=== PATIENT | female | born 1965 | race Hispanic/Latino ===

== ENCOUNTER 2021-07-14 19:57 | Emergency (ER) | payer SELFPAY ==
[2021-07-14 20:45] LABS: #Eosinphils 0.3 10x3/uL (0.0-0.5); #Monocytes 0.4 10x3/uL (0.0-1.1); #Neutrophils 3.4 10x3/uL (1.5-8.4); %Basophils 0.3 % (0.0-2.0); %Eosinophils 4.1 % (0.0-6.0); %Lymphocytes 31.8 % (18.0-47.0); %Monocytes 6.8 % (0.0-10.0); %Neutrophils 56.7 % (40.0-75.0); Hemoglobin 10.3 g/dL (12.0-15.5); Mean Corpuscular HGB CONC 32.1 g/dL (32.0-36.0); Mean Corpuscular Hemoglobin 26.2 pg (27.0-33.0); Mean Corpuscular Volume 81.7 fl (81.6-98.3); Mean Platelet Volume 10.2 fl (7.4-10.4); Platelet Count 103 10x3/uL (150-450); RBC Distribution Width 19.4 % (11.5-14.5); Red Blood Cell (RBC) Count 3.93 10x6/uL (3.90-5.03)
[2021-07-14 20:47] LABS: ALT (SGPT) 21 U/L (8-55); AST (SGOT) 40 U/L (5-34); Alkaline Phosphatase 177 U/L (40-110); Anion Gap 14 mmol/L (10-20); BUN (Urea Nitrogen) 23 mg/dL (9.8-20.1); Bilirubin, Total 0.9 mg/dL (0.2-1.2); Calc. Creatinine Clearance 0 mL/min (70-130); Calcium 9.1 mg/dL (7.8-10.44); Carbon Dioxide 23 mmol/L (22-29); Chloride 105 mmol/L (98-107); Globulin 4.7 g/dL (2.4-3.5); Glucose 243 mg/dL (70-105); Potassium 4.1 mmol/L (3.5-5.1); Protein, Total 7.7 g/dL (6.0-8.3); Sodium 138 mmol/L (136-145)
== END 2021-07-14 22:30 | disposition home or self-care (01) ==
LOC: CSHERS 19:57
DX: M79.10 Myalgia, unspecified site (principal); R53.83 Other fatigue; Z79.899 Other long term (current) drug therapy; Z79.84 Long term (current) use of oral hypoglycemic drugs
CPT/HCPCS: 36416; 71045; 80053; 85025; 93005

== ENCOUNTER 2024-03-11 17:54 | Emergency (ER) | payer BC, SELFPAY ==
[2024-03-11] MEDS ORDERED: Ketorolac Tromethamine 30 MG (1 mL) VIAL ONE (18:41)
== END 2024-03-11 19:32 | disposition home or self-care (01) ==
LOC: CSHERS 17:54
DX: M25.562 Pain in left knee (principal); E11.9 Type 2 diabetes mellitus without complications; Z79.899 Other long term (current) drug therapy; X50.1XXA Overexertion from prolonged static or awkward postures, initial encounter
CPT/HCPCS: 96372; 99283; J1885

== ENCOUNTER 2024-10-06 15:44 | Inpatient (IN) | payer OTHER ==
[2024-10-06] MEDS ORDERED: diphenhydrAMINE 50 MG/ML VIAL ONE (17:16)
[2024-10-06] MEDS ORDERED: Metoclopramide HCl 10 MG (2 mL) VIAL ONE (17:17)
[2024-10-06 17:39] LABS: #Basophils 0.05 10x3/uL (0.0-0.2); #Eosinophils 0.27 10x3/uL (0.0-0.5); #Monocytes 0.72 10x3/uL (0.0-1.1); #Neutrophils 6.24 10x3/uL (1.5-8.4); %Basophils 0.6 % (0.0-2.0); %Eosinophils 3.2 % (0.0-6.0); %Lymphocytes 12.0 % (18.0-47.0); %Monocytes 8.6 % (0.0-10.0); %Neutrophils 74.9 % (40.0-75.0); Hematocrit 35.9 % (34.9-44.5); Hemoglobin 12.4 g/dL (12.0-15.5); Mean Corpuscular Hemoglobin 35.6 pg (27.0-33.0); Mean Corpuscular Volume 103.2 fL (81.6-98.3); Red Blood Cell (RBC) Count 3.48 10x6/uL (3.90-5.03); White Blood Cell (WBC) Count 8.34 10x3/uL (3.5-10.5)
[2024-10-06 17:41] LABS: Platelet Count 50 10x3/uL (150-450)
[2024-10-06 17:51] LABS: ALT (SGPT) 48 U/L (Less than 34); AST (SGOT) 82 U/L (11-34); Albumin 2.0 g/dL (3.1-4.5); Alkaline Phosphatase 133 U/L (40-110); Anion Gap 13 mmol/L (10-20); BUN (Urea Nitrogen) 34 mg/dL (9.8-20.1); Bilirubin, Total 6.8 mg/dL (0.3-1.2); Calc. Creatinine Clearance 0 mL/min (70-130); Calcium 8.4 mg/dL (7.8-10.44); Carbon Dioxide 18 mmol/L (22-29); Chloride 106 mmol/L (98-107); Globulin 5.1 g/dL (2.4-3.5); Glucose 120 mg/dL (70-105); Potassium 4.8 mmol/L (3.5-5.1); Sodium 132 mmol/L (136-145)
[2024-10-06] MEDS ORDERED: Ondansetron PF 4 MG/2 ML Vial ONE (19:50)
[2024-10-06] MEDS ORDERED: Ondansetron PF 4 MG/2 ML Vial IVP PRN (20:12)
[2024-10-06] MEDS ORDERED: Dextrose 50% Abboject 50 ML SYRINGE SLOW IVP PRN (20:23)
[2024-10-06] MEDS ORDERED: Glucagon 1 MG/ML KIT IM PRN (20:23)
[2024-10-06 21:13] LABS: INR-International Normal Ratio 1.4; PTT 33.0 sec (22.0-33.0); Prothrombin Time 14.7 sec (9.5-12.1)
[2024-10-06 21:14] LABS: Magnesium 1.7 mg/dL (1.6-2.6)
[2024-10-06 21:35] VITALS: BMI 44.2
[2024-10-06] MEDS: Magnesium Sulfate/D5W 1 GM in Premix 1 BAG IVPB SCH (22:24)
[2024-10-06] MEDS: Albumin 25% 25 GM (100 mL) BOT IVPB SCH (22:25)
[2024-10-06] MEDS: Cyclobenzaprine 10 MG TAB PO PRN (22:26)
[2024-10-06] MEDS: Lactulose 20 GM (30 mL) UDCUP PO SCH (22:26)
[2024-10-06 22:57] LABS: Glucose, Urine (Dipstick) Normal (Negative); Leukocyte Negative (Negative); Protein, Urine (Dipstick) Negative (Neg-Trace); Specific Gravity, Urine 1.010 (1.005-1.030)
[2024-10-06 23:22] LABS: Bacteria/HPF Rare-Few HPF (None Seen); RBC/HPF 0-3 HPF (0-3); WBC/HPF 0-3 HPF (0-3)
[2024-10-07 00:38] LABS: Influenza A by NAA Not Detected (NotDetected); Influenza B by NAA Not Detected (NotDetected); SARS-CoV-2 NAA Rapid Test Not Detected (NotDetected)
[2024-10-07] MEDS ORDERED: HYDROcodone/Acetaminophen 5/325 mg Tablet PO PRN (01:00)
[2024-10-07 03:53] LABS: #Basophils 0.03 10x3/uL (0.0-0.2); #Eosinophils 0.26 10x3/uL (0.0-0.5); #Monocytes 0.73 10x3/uL (0.0-1.1); #Neutrophils 5.48 10x3/uL (1.5-8.4); %Basophils 0.4 % (0.0-2.0); %Eosinophils 3.4 % (0.0-6.0); %Lymphocytes 14.3 % (18.0-47.0); %Monocytes 9.6 % (0.0-10.0); %Neutrophils 71.6 % (40.0-75.0); Hematocrit 33.9 % (34.9-44.5); Hemoglobin 11.5 g/dL (12.0-15.5); Mean Corpuscular Hemoglobin 35.8 pg (27.0-33.0); Mean Corpuscular Volume 105.6 fL (81.6-98.3); Platelet Count 49 10x3/uL (150-450); Red Blood Cell (RBC) Count 3.21 10x6/uL (3.90-5.03); White Blood Cell (WBC) Count 7.64 10x3/uL (3.5-10.5)
[2024-10-07 04:04] LABS: ALT (SGPT) 42 U/L (Less than 34); AST (SGOT) 65 U/L (11-34); Albumin 1.8 g/dL (3.1-4.5); Alkaline Phosphatase 117 U/L (40-110); Anion Gap 10 mmol/L (10-20); BUN (Urea Nitrogen) 34 mg/dL (9.8-20.1); Bilirubin, Total 6.5 mg/dL (0.3-1.2); Calc. Creatinine Clearance 80 mL/min (70-130); Calcium 8.0 mg/dL (7.8-10.44); Carbon Dioxide 18 mmol/L (22-29); Chloride 107 mmol/L (98-107); Globulin 4.5 g/dL (2.4-3.5); Glucose 229 mg/dL (70-105); Potassium 4.3 mmol/L (3.5-5.1); Sodium 131 mmol/L (136-145)
[2024-10-07] MEDS: Pantoprazole 40 MG VIAL IVP SCH (09:15)
[2024-10-07] MEDS: PNEUMOC 20-VAL CONJ-DIP CRM/PF 0.5 ML SYRINGE IM ONE (09:16)
[2024-10-07] MEDS: Lactulose 20 GM (30 mL) UDCUP PO SCH (09:16)
[2024-10-07] MEDS: Albumin 25% 25 GM (100 mL) BOT IVPB SCH (09:17)
[2024-10-07] MEDS: HYDROcodone/Acetaminophen 5/325 mg Tablet PO PRN (22:48)
[2024-10-08 03:56] LABS: Hematocrit 30.8 % (34.9-44.5); Hemoglobin 10.4 g/dL (12.0-15.5); Mean Corpuscular Hemoglobin 35.7 pg (27.0-33.0); Mean Corpuscular Volume 105.8 fL (81.6-98.3); Platelet Count 46 10x3/uL (150-450); Red Blood Cell (RBC) Count 2.91 10x6/uL (3.90-5.03); White Blood Cell (WBC) Count 6.54 10x3/uL (3.5-10.5)
[2024-10-08 03:57] LABS: #Basophils Less than 0.03 10x3/uL (0.0-0.2); #Eosinophils 0.27 10x3/uL (0.0-0.5); #Monocytes 0.67 10x3/uL (0.0-1.1); #Neutrophils 4.62 10x3/uL (1.5-8.4); %Basophils 0.3 % (0.0-2.0); %Eosinophils 4.1 % (0.0-6.0); %Lymphocytes 14.2 % (18.0-47.0); %Monocytes 10.2 % (0.0-10.0); %Neutrophils 70.7 % (40.0-75.0)
[2024-10-08 04:31] LABS: ALT (SGPT) 37 U/L (Less than 34); AST (SGOT) 62 U/L (11-34); Albumin 2.2 g/dL (3.1-4.5); Alkaline Phosphatase 132 U/L (40-110); Anion Gap 10 mmol/L (10-20); BUN (Urea Nitrogen) 34 mg/dL (9.8-20.1); Bilirubin, Total 4.4 mg/dL (0.3-1.2); Calc. Creatinine Clearance 78 mL/min (70-130); Calcium 7.9 mg/dL (7.8-10.44); Carbon Dioxide 21 mmol/L (22-29); Chloride 106 mmol/L (98-107); Globulin 4.0 g/dL (2.4-3.5); Glucose 121 mg/dL (70-105); Potassium 4.7 mmol/L (3.5-5.1); Sodium 132 mmol/L (136-145)
[2024-10-08 12:03] VITALS: TEMP 98.4
[2024-10-08 13:31] VITALS: BP 148/37
== END 2024-10-08 13:11 | disposition still patient (30) | DRG 556 ==
LOC: CSHERS 15:44 → CSHTELE 20:12 → OBSVTOIN 10-07 15:53
PROVIDERS: ADMIT Internal Medicine; ATTEND Internal Medicine
PROC: 30233J1 Transfusion of Nonautologous Serum Albumin into Peripheral Vein, Percutaneous Approach (ICD-10-PCS; principal; 2024-10-07)
DX: M79.604 Pain in right leg (principal); N17.9 Acute kidney failure, unspecified; E87.1 Hypo-osmolality and hyponatremia; M79.605 Pain in left leg; M19.90 Unspecified osteoarthritis, unspecified site; E11.22 Type 2 diabetes mellitus with diabetic chronic kidney disease; N18.30 Chronic kidney disease, stage 3 unspecified; F41.9 Anxiety disorder, unspecified; D69.6 Thrombocytopenia, unspecified; Z98.890 Other specified postprocedural states; Z98.84 Bariatric surgery status
CPT/HCPCS: 36415; 36416; 70450; 72125; 72131; 76705; 80053; 81001; 82140; 82550; 83036; 83735; 83880; 84145; 84443; 85025; 85610; 85730; 87040; 87636; 93306; 93923; 96374; 96375; 96376; G0378; J1200; J1815; J2270; J2405; J2470; J2765; J3010; J3475; J7030; P9047

== ENCOUNTER 2024-11-25 09:21 | Outpatient (CLI) | payer OTHER ==
[2024-11-25 10:14] LABS: Estimated GFR - POC 17.0
== END 2024-11-25 09:22 | disposition home or self-care (01) ==
LOC: CSHMRI 09:21
PROVIDERS: ATTEND Physician Assistant Medical
DX: K74.60 Unspecified cirrhosis of liver (principal); K76.7 Hepatorenal syndrome; N17.9 Acute kidney failure, unspecified; N18.9 Chronic kidney disease, unspecified; Z99.81 Dependence on supplemental oxygen; D53.9 Nutritional anemia, unspecified; K76.9 Liver disease, unspecified; K76.6 Portal hypertension; R16.2 Hepatomegaly with splenomegaly, not elsewhere classified; J90 Pleural effusion, not elsewhere classified
CPT/HCPCS: 36415; 74183; 82565

== ENCOUNTER 2024-12-30 09:06 | Emergency (ER) | payer OTHER ==
[2024-12-30] MEDS ORDERED: Vancomycin 2.25 GM in Sodium Chloride 0.9% 500 ML IVPB SCH (10:00)
[2024-12-30 10:04] LABS: Actual Bicarbonate (HCO3v) 18.4 mEq/L (22-28); Analyzer IN Cardio CS ER; Base Excess -4.8 mEq/L (-2 - +2); Calcium, Ionized (venous) 1.13 mmol/L (1.16-1.32); Chloride (VBG) 101 mmol/L (98-106); Hematocrit-VBG 27 % (36.0-47.0); Hemoglobin (Hb) 9.1 g/dL (11.7-16.0); Potassium (VBG) 3.13 mmol/L (3.70-5.30); Puncture Site Other Site; RapidComm Collect By LAB.CB1; Sodium 130 mmol/L (133-146)
[2024-12-30 10:09] LABS: #Basophils 0.04 10x3/uL (0.0-0.2); #Eosinophils 0.30 10x3/uL (0.0-0.5); #Monocytes 0.81 10x3/uL (0.0-1.1); #Neutrophils 12.15 10x3/uL (1.5-8.4); %Basophils 0.3 % (0.0-2.0); %Eosinophils 2.1 % (0.0-6.0); %Lymphocytes 4.1 % (18.0-47.0); %Monocytes 5.8 % (0.0-10.0); %Neutrophils 86.9 % (40.0-75.0); Hematocrit 21.7 % (34.9-44.5); Hemoglobin 7.8 g/dL (12.0-15.5); Mean Corpuscular Hemoglobin 37.0 pg (27.0-33.0); Mean Corpuscular Volume 102.8 fL (81.6-98.3); Platelet Count 74 10x3/uL (150-450); Red Blood Cell (RBC) Count 2.11 10x6/uL (3.90-5.03); White Blood Cell (WBC) Count 13.98 10x3/uL (3.5-10.5)
[2024-12-30] MEDS ORDERED: Ketorolac Tromethamine 30 MG (1 mL) VIAL ONE (10:09)
[2024-12-30] MEDS ORDERED: cefTRIAXone (ROCEPHIN) 2 GM VIAL ONE (10:10)
[2024-12-30 10:15] LABS: INR-International Normal Ratio 2.2; PTT 44.0 sec (22.0-33.0); Prothrombin Time 22.4 sec (9.5-12.1)
[2024-12-30] MEDS ORDERED: Vancomycin 2.5 GM in Sodium Chloride 0.9% 500 ML IVPB SCH (10:25)
[2024-12-30 10:40] LABS: ALT (SGPT) 34 U/L (Less than 34); AST (SGOT) 96 U/L (11-34); Albumin 2.5 g/dL (3.1-4.5); Alkaline Phosphatase 102 U/L (40-110); Anion Gap 14 mmol/L (10-20); BUN (Urea Nitrogen) 52 mg/dL (9.8-20.1); Bilirubin, Total 6.4 mg/dL (0.3-1.2); Calc. Creatinine Clearance 0 mL/min (70-130); Calcium 9.0 mg/dL (7.8-10.44); Carbon Dioxide 17 mmol/L (22-29); Chloride 101 mmol/L (98-107); Globulin 4.7 g/dL (2.4-3.5); Glucose 110 mg/dL (70-105); Potassium 3.1 mmol/L (3.5-5.1); Sodium 129 mmol/L (136-145)
[2024-12-30 10:52] LABS: Troponin I Less than 0.010 ng/mL (< 0.028)
[2024-12-30 11:28] LABS: Glucose, Urine (Dipstick) Normal (Negative); Leukocyte 500 (Negative); Protein, Urine (Dipstick) 30 mg/dl (Neg-Trace); Specific Gravity, Urine 1.010 (1.005-1.030)
[2024-12-30 11:35] LABS: Bacteria/HPF 2+ HPF (None Seen); CAUTI Indications for Culture Alt mental st,lethar; WBC/HPF 21-50 HPF (0-3)
[2024-12-30 11:36] LABS: Urine Culture Reflex Yes Yes; Yeast-Budding 1+ HPF (None Seen)
== END 2024-12-30 17:06 ==
LOC: CSHERS 09:06
DX: N39.0 Urinary tract infection, site not specified (principal); N19 Unspecified kidney failure; E11.9 Type 2 diabetes mellitus without complications
CPT/HCPCS: 36415; 51702; 71045; 80053; 81001; 82140; 82805; 83605; 84484; 85025; 85610; 85730; 87040; 87086; 87428; 93005; 94760; 96365; 96366; 96367; 96368; 96375; J0696; J1885; J3373; J7030; P9047